=== PATIENT | female | born 1995 | race Caucasian/White ===

== ENCOUNTER 2017-09-19 13:32 | Emergency (ER) | payer OTHER ==
[2017-09-19] MEDS: LIDOCAINE 1% (MDV) 10 ML INJ INJ (15:14)
== END 2017-09-19 16:12 | disposition home or self-care (01) ==
LOC: FTE 13:32
DX: S00.451A Superficial foreign body of right ear, initial encounter (principal); F17.210 Nicotine dependence, cigarettes, uncomplicated; W45.8XXA Other foreign body or object entering through skin, initial encounter; Y92.9 Unspecified place or not applicable
CPT/HCPCS: 10120; 99283-25